=== PATIENT | male | born 1955 | race Caucasian/White ===

== ENCOUNTER 2020-02-21 14:48 | Outpatient (CLI) | payer MEDICARE, SELFPAY ==
[2020-02-21 15:03] LABS: Basophils Absolute Auto 0.1 K/mm3 (0.0-0.1); Basophils Percent Auto 0.7 % (0.2-1.2); Eosinophils Percent Auto 14.2 % (0-4.4); Hematocrit 44.8 % (42.0-52.0); Hemoglobin 15.9 g/dL (14.0-18.0); Immature Granulocyte Absolute 0.08 K/mm3 (0.00-0.031); Immature Granulocyte Percent A 0.6 % (0-0.5); Lymphocytes Absolute Auto 3.22 K/mm3 (0.9-3.2); Lymphocytes Percent Auto 22.4 % (18.3-44.2); Mean Corpuscular HGB Conc 35.5 g/dl (32-36); Mean Corpuscular Hemoglobin 30.6 pg (26-34); Mean Corpuscular Volume 86.2 fl (80-100); Mean Platelet Volume 10.2 fl (7.4-10.4); Monocytes Absolute Auto 1.4 K/mm3 (0.1-0.6); Monocytes Percent Auto 9.9 % (2.6-8.5); Neutrophils Absolute Auto 7.5 K/mm3 (1.3-6.7); Neutrophils Percent Auto 52.2 % (45.5-73.1); Platelet Count Result 294 k/mm3 (150-375); Red Cell Distribution Width 12.1 % (11.5-14.5); White Blood Count 14.4 K/mm3 (4.5-10.0)
[2020-02-21 16:49] LABS: Alanine Aminotransferase 39 U/L (4-50); Alkaline Phosphatase 107 U/L (38-126); Aspartate Amino Transferase 39 U/L (17-59); Bilirubin,Total 0.6 mg/dL (0.2-1.3); Blood Urea Nitrogen 16 mg/dL (9-20); CRP < 0.5 mg/dL (<1.0); Calcium 9.6 mg/dL (8.4-10.2); Carbon Dioxide 25 mmol/L (22-30); Chloride 92 mmol/L (98-107); Estimated Glomerular Filt Rate > 60; Glucose 91 mg/dL (75-110); Lactate Dehydrogenase 451 U/L (313-618); Sodium 128 mmol/L (137-145)
[2020-02-21 16:57] LABS: Potassium 4.2 mmol/L (3.4-5.0)
[2020-02-21 17:05] LABS: Erythrocyte Sedimentation Rate 7 mm/hr (0-20)
[2020-02-24 06:35] LABS: Immunoglobulin E 191 kU/L (<=114)
== END 2020-02-21 14:49 | disposition home or self-care (01) ==
LOC: ANHLAB 14:50
PROVIDERS: PCP Emergency Medicine; Visit Provider Internal Medicine Hematology & Oncology
DX: D72.1 Eosinophilia (principal)
CPT/HCPCS: 36415; 80053; 82607; 82785; 83520; 83615; 85025; 85652; 86140

== ENCOUNTER 2020-03-13 11:04 | Outpatient (CLI) | payer MEDICARE, SELFPAY ==
[2020-03-16 15:04] LABS: BCR/abl Prior Result Not Given
[2020-03-16 15:49] LABS: BCR/abl P190 Not Detected; BCR/abl P210 Not Detected
[2020-03-16 15:50] LABS: BCR/abl P190 Chg YES; BCR/abl P210 Chg YES
[2020-03-17 04:09] LABS: Albumin 4.3 g/dL (3.8-4.8); Alpha 1 Globulin 0.4 g/dL (0.2-0.3); Alpha 2 Globulin 0.8 g/dL (0.5-0.9); Beta 1 Globulin 0.5 g/dL (0.4-0.6); Gamma Globulin 1.1 g/dL (0.8-1.7); Protein, Total 7.3 g/dL (6.1-8.1)
== END 2020-03-13 11:05 | disposition home or self-care (01) ==
LOC: ANHLAB 11:05
PROVIDERS: PCP Emergency Medicine; Visit Provider Internal Medicine Hematology & Oncology
DX: D72.1 Eosinophilia (principal); C92.10 Chronic myeloid leukemia, BCR/ABL-positive, not having achieved remission
CPT/HCPCS: 36415; 81206; 81207; 84155; 84165; 86334; 88184; 88185

== ENCOUNTER 2020-03-27 10:33 | Outpatient (CLI) | payer MEDICARE, SELFPAY ==
--- NOTE | ~2020-03-27 | CT_ITS ---
EXAMINATION: CT lung screening DATE: 03/27/2020 11:04 INDICATION: Routine dependence. TECHNIQUE: Computed tomography (CT) of the chest was performed without intravenous contrast. The dose -length product was 76.77 mGy-cm. Automated exposure control and iterative reconstruction technique w ere employed. COMPARISON: CT dated 08/08/2018 FINDINGS: No thoracic lymphadenopathy. Heart size normal. There is atherosclerosis of the aorta and c oronary arteries. No significant pleural or pericardial effusion. There is moderate centrilobular and paraseptal emphysema. There is apical pleural thickening/scarring. No pneumothorax. Heart size is no rmal. Visualized aspects of the upper abdomen are unremarkable. No new pulmonary nodules or masses. T here are chronic anterior wedge deformities of T10, T11 and T12 with mild superior and inferior endpl ate compression deformity of T8. These findings are unchanged. Accentuated kyphosis. IMPRESSION: 1. Lung-RADS category 1: Negative. Continue annual screening with noncontrast low-dose chest CT in 12 months. Reviewed, dictated and finalized at location A. IMPRESSION: 1. Lung-RADS category 1: Negative. Continue annual screening with noncontrast l ow-dose chest CT in 12 months.
== END 2020-03-27 10:34 | disposition home or self-care (01) ==
PROVIDERS: PCP Emergency Medicine; Visit Provider Internal Medicine Hematology & Oncology
DX: Z12.2 Encounter for screening for malignant neoplasm of respiratory organs (principal); Z87.891 Personal history of nicotine dependence
CPT/HCPCS: G0297

== ENCOUNTER 2020-04-05 11:51 | Outpatient (CLI) | payer MEDICARE, SELFPAY | END 2020-04-05 11:52 | disposition home or self-care (01) | LOC: ANHLAB 11:52 | PROVIDERS: PCP Emergency Medicine; Visit Provider Internal Medicine Hematology & Oncology | DX: C92.10 Chronic myeloid leukemia, BCR/ABL-positive, not having achieved remission (principal) | CPT/HCPCS: 36415; 88271; 88275 ==

== ENCOUNTER 2020-08-13 13:12 | Outpatient (CLI) | payer MEDICARE, SELFPAY ==
[2020-08-13 13:29] LABS: Basophils Absolute Auto 0.1 K/mm3 (0.0-0.1); Basophils Percent Auto 0.7 % (0.2-1.2); Eosinophils Percent Auto 9.9 % (0-4.4); Hematocrit 43.2 % (42.0-52.0); Hemoglobin 14.9 g/dL (14.0-18.0); Immature Granulocyte Absolute 0.04 K/mm3 (0.00-0.031); Immature Granulocyte Percent A 0.4 % (0-0.5); Lymphocytes Absolute Auto 2.65 K/mm3 (0.9-3.2); Lymphocytes Percent Auto 25.5 % (18.3-44.2); Mean Corpuscular HGB Conc 34.5 g/dl (32-36); Mean Corpuscular Hemoglobin 30.2 pg (26-34); Mean Corpuscular Volume 87.6 fl (80-100); Mean Platelet Volume 10.1 fl (7.4-10.4); Monocytes Absolute Auto 1.1 K/mm3 (0.1-0.6); Monocytes Percent Auto 10.6 % (2.6-8.5); Neutrophils Absolute Auto 5.5 K/mm3 (1.3-6.7); Neutrophils Percent Auto 52.9 % (45.5-73.1); Platelet Count Result 281 k/mm3 (150-375); Red Blood Count 4.93 M/mm3 (4.6-6.20); Red Cell Distribution Width 12.2 % (11.5-14.5); White Blood Count 10.4 K/mm3 (4.5-10.0)
[2020-08-13 13:33] LABS: Blood Urea Nitrogen 15 mg/dL (8-26); Carbon Dioxide 22 mmol/L (22-30); Chloride 100 mmol/L (98-109); Estimated Glomerular Filt Rate > 60; Glucose 94 mg/dL (70-105); Potassium 4.2 mmol/L (3.5-4.9); Sodium 134 mmol/L (138-146)
[2020-08-13 17:49] LABS: Folic Acid 11.8 ng/mL (2.76->20)
== END 2020-08-13 13:13 | disposition home or self-care (01) ==
LOC: ANHLAB 13:14
PROVIDERS: PCP Emergency Medicine; Visit Provider Internal Medicine Hematology & Oncology
DX: D72.1 Eosinophilia (principal)
CPT/HCPCS: 36415; 80048; 82607; 82746; 85025

== ENCOUNTER 2023-09-30 14:23 | Emergency (ER) | payer OTHER, MEDICARE, SELFPAY ==
--- NOTE | 2023-09-30 14:27 | ED.WOUNDLAC ---
HPI - Wound/Laceration General Chief Complaint: Wound/Laceration Stated Complaint: right finger cut Time Seen by Provider: 09/30/23 14:49 Source: patient, RN notes reviewed and old records reviewed Mode of arrival: ambulatory Limitations: no limitations History of Present Illness HPI narrative: 68-year-old male presents to the [facility] with complaints of a laceration to the right index finger Bleeding is controlled Full range of motion of the finger, flap of skin noted Cut on a slicer Unknown last Tdap Onset (ago): hour(s) Related Data Home Medications Medication Instructions Recorded Confirmed amlodipine 10 mg tablet 10 mg PO DAILY 09/30/23 09/30/23 atorvastatin 80 mg tablet 80 mg PO DAILY 09/30/23 09/30/23 hydralazine 10 mg tablet 10 mg PO DAILY 09/30/23 09/30/23 lisinopril 20 mg tablet 20 mg PO DAILY 09/30/23 09/30/23 Allergies Allergy/AdvReac Type Severity Reaction Status Date / Time No Known Allergies Allergy Verified 09/30/23 15:05 Review of Systems Review of Systems: All systems reviewed & are unremarkable except as noted in HPI and below Constitutional: Constitutional: Reports no additional constitutional complaints Eyes: Eyes: Reports no additional eye complaints ENT: Reports system reviewed and no additional complaints, except as documented Cardiovascular: Cardiovascular: Reports no additional cardiovascular complaints, Denies chest pain and Denies dyspnea Respiratory: Respiratory: Reports no additional respiratory complaints, Denies chest congestion, Denies cough and Denies dyspnea Gastrointestinal: Gastrointestinal: Reports no additional gastrointestinal complaints, Denies abdominal pain, Denies nausea and Denies vomiting Musculoskeletal: Musculoskeletal: Reports no additional musculoskeletal complaints Integumentary/Breasts: Skin/Breast: Reports as per HPI and Reports wounds Neurologic: Reports system reviewed and no additional complaints, except as documented Psychiatric: Psychiatric: Reports no additional psychiatric complaints Allergic/Immunologic: Allergic/Immunologic: Reports no additional allergic/immunologic complaints PMFSH Comments At the time of my signature, I reviewed and agree with the nursing past medical, surgical, social, and family history. There is no relevant family history pertinent to the patient complaint. Exam Const: General: cooperative, healthy appearing, comfortable, no acute distress, well developed, alert and well nourished Nutritional Appearance: well nourished Orientation/consciousness: patient oriented x3 Limitations: no limitations HENMT: Head: normal to inspection Ears: hearing grossly normal bilaterally and external ears normal Face/Nose/Sinus: Normal external nose present, Normal nares present, Normal nasal mucous membranes and turbinates present, normal facial exam and face symmetric Face and sinus: normal facial exam and face symmetric Eyes: General: appearance normal, both eyes and all related structures Alignment and Position: alignment normal Periorbital: periorbital findings normal Pupils: Equal, round and reactive pupils present EOM: EOMs intact bilaterally Neck: Neck: normal visual inspection, full ROM, no lymphadenopathy and no meningeal signs Chest: Chest palpation & inspection: normal inspection of the chest Resp: Effort & Inspection: normal respiratory effort and able to speak in complete sentences Auscultation: clear to auscultation bilaterally, no crackles, no rales, no rhonchi and no wheezes Cardio: Rate: regular rate Rhythm: regular rhythm Back/Spine/Pelvis: Cervical Spine: cervical ROM normal Skin: General skin exam: normal color and no rashes or lesions noted Lesions: no lesions Rashes: no rashes Neuro: General: patient oriented x3, gait normal, tone normal, moves all extremities and no meningeal signs Cranial nerves: Yes Equal, round and reactive pupils present Cognition (Neuro): normal cognition Speech: normal speech
[2023-09-30 15:02] VITALS: BP 156/70; PULSE 76; RESP 16; TEMP 36.8; O2SAT 99
[2023-09-30] MEDS: TETANUS/DIPHTHERIA TOXOIDS ADSORB 0.5 ML VIAL (*BKC) IM (15:28)
== END 2023-09-30 15:53 | disposition home or self-care (01) ==
PROVIDERS: Emergency Provider Nurse Practitioner; PCP Emergency Medicine
DX: S61.210A Laceration without foreign body of right index finger without damage to nail, initial encounter (principal); W29.0XXA Contact with powered kitchen appliance, initial encounter; Z23 Encounter for immunization; E78.00 Pure hypercholesterolemia, unspecified; I10 Essential (primary) hypertension
CPT/HCPCS: 12002; 90471; 90714; 99212; G0463

== ENCOUNTER 2024-05-08 20:58 | Emergency (ER) | payer MEDICARE, SELFPAY ==
--- NOTE | ~2024-05-08 | CT_ITS ---
EXAMINATION: CT brain wo con DATE: 05/09/2024 00:16 INDICATION: Altered mental status. TECHNIQUE: Computed tomography (CT) of the head was performed without intravenous contrast. The mA wa s adjusted according to patient size. Iterative reconstruction technique was employed. The dose-lengt h product was 605.33 mGy-cm. COMPARISON: None FINDINGS: There is no intracranial hemorrhage, acute infarction, or abnormal intracranial mass lesion . There are scattered areas of low attenuation in the cerebral white matter, which is within normal l imits for the patient's age. The ventricles are normal in size. There is mild mucosal thickening in t he paranasal sinuses. There is thickening and sclerosis of the jean of right sphenoid sinus and righ t frontal sinus, consistent with chronic sinusitis. Partially visualized is a calcified mass in right nasal cavity, likely benign. The adrenal glands are normal. IMPRESSION: 1. Normal aging brain. 2. Chronic sinusitis. Reviewed, dictated and finalized at location E.
[2024-05-08 21:01] VITALS: BP 166/77; PULSE 89; RESP 14; TEMP 36.6; O2SAT 98
[2024-05-08 21:28] LABS: Basophils Absolute Auto 0.1 K/mm3 (0.0-0.1); Basophils Percent Auto 0.5 % (0.2-1.2); Eosinophils Absolute Auto 1.3 K/mm3 (0-0.3); Eosinophils Percent Auto 11.7 % (0-4.4); Hematocrit 38.2 % (42.0-52.0); Hemoglobin 13.5 g/dL (14.0-18.0); Immature Granulocyte Absolute 0.04 K/mm3 (0.00-0.031); Immature Granulocyte Percent A 0.4 % (0-0.5); Lymphocytes Absolute Auto 3.29 K/mm3 (0.9-3.2); Lymphocytes Percent Auto 29.9 % (18.3-44.2); Mean Corpuscular HGB Conc 35.3 g/dl (32-36); Mean Corpuscular Hemoglobin 30.9 pg (26-34); Mean Corpuscular Volume 87.4 fl (80-100); Mean Platelet Volume 10.3 fl (7.4-10.4); Monocytes Absolute Auto 1.3 K/mm3 (0.1-0.6); Monocytes Percent Auto 11.4 % (2.6-8.5); Neutrophils Absolute Auto 5.1 K/mm3 (1.3-6.7); Neutrophils Percent Auto 46.1 % (45.5-73.1); Platelet Count Result 248 k/mm3 (150-375); Red Blood Count 4.37 M/mm3 (4.6-6.20); Red Cell Distribution Width 12.6 % (11.5-14.5)
[2024-05-08 21:41] LABS: INR 0.9; Prothrombin Time 12.9 Seconds (11.1-14.7)
[2024-05-08 21:42] LABS: Partial Thromboplastin Time 26.3 Seconds (22.3-36.8)
[2024-05-08 21:47] LABS: Alanine Aminotransferase 16 U/L (6-50); Albumin Level 4.2 g/dL (3.5-5.1); Alkaline Phosphatase 73 U/L (38-126); Anion Gap 6 mmol/L (4-12); Aspartate Amino Transferase 26 U/L (17-59); Bilirubin,Total 0.6 mg/dL (0.2-1.3); Blood Urea Nitrogen 28 mg/dL (9-20); Calcium 9.5 mg/dL (8.4-10.2); Carbon Dioxide 27 mmol/L (22-30); Chloride 103 mmol/L (98-107); Estimated CRCL calculation 51 ml/min; Estimated Glomerular Filt Rate > 60; Glucose 119 mg/dL (65-110); Potassium 4.2 mmol/L (3.4-5.0); Sodium 136 mmol/L (137-145)
[2024-05-08 21:48] VITALS: BP 146/86; PULSE 60; PULSE 83; RESP 18; O2SAT 97
[2024-05-08 21:51] VITALS: O2SAT 97
--- NOTE | 2024-05-09 | ECG_ITS ---
Test Date: 2024-05-09 00:01:30 Measurements Intervals [place] Rate: 78 P: 59 MS: 155 QRS: 56 QRSD: 89 T: 0 QT: 370 QTc: 422 Interpretive Statements SINUS RHYTHM NONSPECIFIC ST AND T-WAVE ABNORMALITY No previous ECG available for comparison Electronically Signed On 05-09-2024 12:06:19 CDT by Lidya Richardson M.D.
[2024-05-09 00:05] VITALS: BP 132/94; PULSE 92; RESP 15; O2SAT 98
--- NOTE | 2024-05-09 00:27 | ED.NEUROSD ---
HPI - Neuro Symptoms/Deficit General Chief Complaint: Neuro Symptoms/Deficit Stated Complaint: neuro sx for x5 months Time Seen by Provider: 05/08/24 23:28 Source: patient Mode of arrival: ambulatory Limitations: no limitations History of Present Illness HPI Narrative: This is a 68 year old male that presents to the ER for symptoms ongoing over the last couple of months. His family member reports he has been having trouble focusing and has been confused. This has been ongoing for several months. They had a telephone visit with his PCP. He had some blood work done and was prompted to be seen in the ER for a CT scan. Patient has no complaints currently. Denies focal numbness or weakness currently. Related Data Home Medications Medication Instructions Recorded Confirmed amlodipine 10 mg tablet 10 mg PO DAILY 09/30/23 09/30/23 atorvastatin 80 mg tablet 80 mg PO DAILY 09/30/23 09/30/23 hydralazine 10 mg tablet 10 mg PO DAILY 09/30/23 09/30/23 lisinopril 20 mg tablet 20 mg PO DAILY 09/30/23 09/30/23 Allergies Allergy/AdvReac Type Severity Reaction Status Date / Time No Known Allergies Allergy Verified 05/08/24 21:52 Review of Systems Review of Systems: CONSTITUTIONAL: Denies fever EYES: Denies visual changes NEUROLOGIC: Denies headache, numbness, or weakness. All systems reviewed & are unremarkable except as noted in HPI and below PMFSH Past Medical History Medical History (Updated 05/09/24 @ 02:27 by Daina Coates PA-C) History of hypertension Social History Social History (Updated 05/09/24 @ 00:29 by Daina Coates PA-C) Smoking status: Current every day smoker Exam Narrative: GENERAL: Well-appearing, well-nourished, and in no acute distress. HEAD: Normocephalic, atraumatic. EYES: PERRLA and EOMI. ENT: Nares clear, no rhinorrhea or epistaxis. Mucous membranes moist. Oropharynx without tonsillar hypertrophy exudate or other lesions. Bilateral TMs pearly gil non-bulging NECK: Supple. No adenopathy or masses. No JVD CHEST: Clear to auscultation. No respiratory distress. No wheezes rales or rhonchi HEART: Regular rate and rhythm. No murmur heard. Normal peripheral pulses. EXTREMITIES: Normal range of motion. No edema. Strength equal in bilateral upper and lower extremities (5/5) SKIN: Warm, dry, no rash. NEURO: No focal deficits. Alert and oriented x3. CN II-XII grossly intact PSYCH: Normal mood and affect Course Course Emergency Course: patient and family updated on workup and agree with plan of care Vital Signs Vital signs: Vital Signs Temperature 97.9 F 05/08/24 21:01 Pulse Rate 89 05/08/24 21:01 Respiratory Rate 14 05/08/24 21:01 Blood Pressure 166/77 H 05/08/24 21:01 Pulse Oximetry 98 05/08/24 21:01 Oxygen Delivery Room Air 05/08/24 21:01 Temperature 97.9 F 05/08/24 21:01 Pulse Rate 92 05/09/24 00:05 Respiratory Rate 15 05/09/24 00:05 Blood Pressure 132/94 H 05/09/24 00:05 Pulse Oximetry 98 05/09/24 00:05 Oxygen Delivery Room Air 05/08/24 21:01 MDM - Neuro Symptoms/Deficit MDM Narrative Medical decision making narrative: Patient presents the emergency department for increasing confusion noted by his family member. Reportedly this has been ongoing for months. He had outpatient blood work and was prompted to be seen in the ER for a scan of his brain. Patient is neurologically intact without any focal deficits currently. No current complaints. CBC with mild leukocytosis to 11. Also shows normocytic anemia with hemoglobin of 13.5. Metabolic panel without concerning findings. CT brain is without acute findings. Patient and family updated on workup and agree with plan of care. He is to have further evaluation with primary provider. He was given warnings to return to the ER Differential Diagnosis Differential diagnosis: Likely subarachnoid hemorrhage, cerebrovascular accident and other ( brain mass, dementia) Lab Data Attestation:
== END 2024-05-09 02:45 | disposition home or self-care (01) ==
PROVIDERS: Emergency Medicine; Emergency Provider Physician Assistant; PCP Emergency Medicine
DX: R41.0 Disorientation, unspecified (principal); I10 Essential (primary) hypertension; D64.9 Anemia, unspecified; F17.200 Nicotine dependence, unspecified, uncomplicated; Z79.899 Other long term (current) drug therapy; R94.31 Abnormal electrocardiogram [ECG] [EKG]
CPT/HCPCS: 36415; 70450; 80053; 83735; 85025; 85610; 85730; 93005; 99284